=== PATIENT | male | born 1960 | race Caucasian/White ===

== ENCOUNTER → 2019-12-30 | Outpatient (CLI) | payer OTHER ==
[~2019-12-30] MED LIST: ACCUPRIL40 MG PO; ADVAIRDISKUS; ASA5UEC PO; ASTELIN30 ML NS; CELEXA 20 MG TA20 M1 PO; CLONIDINE PO; COUMADIN 5 MG TA5 M1 PO; DIAZEPAM 5 MG5 M1 PO; DOCUPRENE100 MG PO; FENOFIBRATE160 MG PO; FEXOFENADINE H180 MG PO; GLUCOPHAGE500 MG PO; JANUVIA100 MG; LITHIUM CARBON450 MG PO; LOVAZA1000 MG PO; NEXIUM40 MG PO; PROVENTIL17 G1 IH; SIMVASTATIN40 MG; SINGULAIR PO; SYNTHROID100 MCG PO
== END ==
LOC: MRI 12-25 11:35
DX: I67.82 Cerebral ischemia (principal); G62.9 Polyneuropathy, unspecified; G56.21 Lesion of ulnar nerve, right upper limb; G45.9 Transient cerebral ischemic attack, unspecified; M62.81 Muscle weakness (generalized)

== ENCOUNTER 2020-05-24 23:37 | Emergency (ER) | payer OTHER ==
[~2020-05-24] VITALS: Ht 175.3 cm; Wt 99.8 kg
[2020-05-25 01:21] LABS: BASOPHILS 0.5 % (0.0-2.0); EOSINOPHILS 3.4 % (0.0-3.0); HEMOGLOBIN 14.7 gm/dL (14.0-18.0)
[2020-05-25 01:23] LABS: ABSOLUTE NEUTROPHILS 5.3 thou/uL (1.4-8.2); MCH 39.4 pg (26.0-34.0); MCHC 43.1 g/dL (28.0-37.0); MCV 91.4 fL (80.0-100.0); MONOCYTES 5.9 % (1.0-8.0); PLATELET COUNT 155 thou/uL (150-400); POLYS 65.2 % (36.0-66.0); RBC 3.72 mil/uL (4.50-6.00); RDW 13.5 % (10.5-14.5); WBC 8.1 thou/uL (4.0-11.0)
[2020-05-25 01:24] LABS: ANION GAP 9 mmol/L (7-16); BUN 13 mg/dL (7-18); CALCIUM 8.9 mg/dL (8.5-10.1); CHLORIDE 104 mmol/L (98-107); CO2 24 mmol/L (21-32); CREATININE 1.2 mg/dL (0.7-1.3); GLUCOSE 108 mg/dL (74-106); POTASSIUM 4.1 mmol/L (3.5-5.1); SODIUM 137 mmol/L (136-145)
[2020-05-25] MEDS ORDERED: NIZATIDINE150 MG PO (01:26)
[2020-05-25] MEDS ORDERED: DESLORATADINE5 MG PO (01:27)
[2020-05-25] MEDS ORDERED: FOLIC ACID1 MG PO (01:29)
[2020-05-25] MEDS ORDERED: SYNTHROID112 MC1 PO (01:29)
[2020-05-25] MEDS ORDERED: VITAMIN B-121000 MC2 SUBLING (01:29)
[2020-05-25] MEDS ORDERED: REGLAN 10 MG TA10 MG PO (01:30)
[2020-05-25] MEDS ORDERED: GLIMEPIRIDE4 MG PO (01:30)
[2020-05-25] MEDS ORDERED: CARAFATE1 GM PO (01:31)
[2020-05-25] MEDS ORDERED: VITAMIN D250 MCG PO (01:32)
[2020-05-25 01:34] LABS: ALBUMIN 3.8 g/dL (3.4-5.0); DIRECT BILIRUBIN < 0.1 mg/dL (<0.1-0.2); SGOT 25 U/L (15-37); SGPT 35 U/L (30-65); TOTAL BILIRUBIN 0.5 mg/dL (0.2-1.0); TOTAL PROTEIN 7.5 g/dL (6.4-8.2); TROPONIN-I <0.06 ng/mL (<0.06)
[2020-05-25] MEDS ORDERED: CELEXA 20 MG TA20 MG PO (01:35)
[2020-05-25] MEDS ORDERED: FLOMAX0.4 MG PO (01:35)
[2020-05-25] MEDS ORDERED: TRAZODONE HCL100 MG PO (01:36)
[2020-05-25 01:40] LABS: APTT 56.7 Seconds (24.5-32.8); D-DIMER 0.19 ug/mLFEU (0.19-0.50)
[2020-05-25 01:42] LABS: INR 4.9
[2020-05-25 02:41] VITALS: BP 156/86
--- NOTE | 2020-05-25 07:53 | EKG ---
[facility] [place] [address] ELECTROCARDIOGRAM REPORT Name: SURINDER LUGO Room #: DEP M.R.#: [id number] Admission: 05/24/20 Attend Phys: Discharge: 05/25/20 Date of : 56 Report #: [id number] THIS REPORT FOR: cc: Corey Edwards MD, Thomas P. MD Lundgren, Craig H. 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: GEN WAITE : 1960 Requested By: Arlene Huang Order Number: [id number] MD: Lobito Broderick Measurements Intervals Ipava Rate: 84 P: 33 PA: 159 QRS: -15 QRSD: 86 T: 39 QT: 370 QTc: 438 Interpretive Statements Sinus rhythm Borderline left axis deviation Abnormal R-wave progression, early transition Compared to ECG 05/25/2010 17:21:43 No significant changes Electronically Signed On 05-25-2020 7:52:49 CDT by Lobito Broderick [email or web address] <ELECTRONICALLY SIGNED> By: Lobito Broderick MD, [facility] 05/25/20 [id number] Lobito Broderick MD, [facility] /EPI
== END 2020-05-25 02:54 | disposition home or self-care (01) ==
LOC: ER 23:37
PROVIDERS: Emergency Medicine
DX: R07.89 Other chest pain (principal); R06.00 Dyspnea, unspecified; R79.1 Abnormal coagulation profile; I10 Essential (primary) hypertension; E11.9 Type 2 diabetes mellitus without complications; K21.9 Gastro-esophageal reflux disease without esophagitis; Z90.89 Acquired absence of other organs; Z79.01 Long term (current) use of anticoagulants; Z79.899 Other long term (current) drug therapy; Z88.8 Allergy status to other drugs, medicaments and biological substances

== ENCOUNTER → 2020-07-12 | Outpatient (CLI) | payer OTHER ==
[~2020-07-12] MED LIST changes: +CARAFATE1 GM PO; +CELEXA 20 MG TA20 MG PO; +DESLORATADINE5 MG PO; +FLOMAX0.4 MG PO; +FOLIC ACID1 MG PO; +GLIMEPIRIDE4 MG PO; +NIZATIDINE150 MG PO; +REGLAN 10 MG TA10 MG PO; +SYNTHROID112 MC1 PO; +TRAZODONE HCL100 MG PO; +VITAMIN B-121000 MC2 SUBLING; +VITAMIN D250 MCG PO
== END ==
LOC: EH 07:40 → SJCVCIMAG 08:16
PROVIDERS: ATTEND Internal Medicine Cardiovascular Disease
DX: I49.3 Ventricular premature depolarization (principal); E78.5 Hyperlipidemia, unspecified; K21.9 Gastro-esophageal reflux disease without esophagitis; Z79.899 Other long term (current) drug therapy

== ENCOUNTER → 2020-07-29 | Outpatient (CLI) | payer OTHER | LOC: CAT 08:07 | PROVIDERS: ATTEND Internal Medicine Cardiovascular Disease | DX: Z13.6 Encounter for screening for cardiovascular disorders (principal); I25.10 Atherosclerotic heart disease of native coronary artery without angina pectoris; E78.00 Pure hypercholesterolemia, unspecified ==

== ENCOUNTER 2020-10-02 13:49 | Inpatient (IN) | payer OTHER ==
[2020-10-02] VITALS (34 sets, daily range): BP systolic 88–215; BP diastolic 42–108
[~2020-10-02] VITALS: Ht 175.3 cm; Wt 102.1 kg
--- NOTE | ~2020-10-02 | EMS ---
[address] [address] EMS Patient Care Report Name: SURINDER LUGO Room #: 170-8 ADM IN M.R.#: [id number] Admission: 10/02/20 Attend Phys: Will Littlejohn MD Discharge: Date of : 56 Report #: [id number] THIS REPORT FOR: //name// Report Transmitted: 10/02/2020 14:52 EMS Care Summary [place], [place]/[facility] Incident [id number] @ 10/02/2020 13:09 Incident Location [address] [place] [address] Patient SURINDER LUGO Male, 59 Years 1960 Patient Address [address] [place] [address] Patient History Asthma,Hypertension (HTN),Hyperlipidemia,Bipolar II Disorder,Type 2 Diabetes,Enlarged prostate, Patient Allergies Intravenous Dye,Dye allergy,Niacin,Compazine, Patient Medications Januvia, Warfarin, Synthroid, Duloxetine, Glimepiride, Trazodone, Diazepam, Simvastatin, Tamsulosin, Clonidine, [place], Citalopram, Chief Complaint Fever with weakness Disposition Transported No Lights/[place] Dispatch Reason Hemorrhage/Laceration Transported To [facility] Narrative Pt. reports that he is weak, tired and doesn't feel well. reports he has BPH and has been battling a fever for 4 days. Now he has blood in his urine. [address] [address] EMS Patient Care Report Name: SURINDER LUGO Room #: 170-8 ADM IN M.R.#: [id number] Admission: 10/02/20 Attend Phys: Will Littlejohn MD Discharge: Date of : 56 Report #: [id number] Just before she called, he slid off the bed and although uninjured he is too weak to stand or assist with his care anymore. Pt. 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 with report given Initial Vitals @13:26P: 133,CO: 5,SpO2: 95, @13:24P: 133,BP: 207/101,SpO2: 96, @13:23P: 134,CO: 3,SpO2: 95, @13:37P: 126,R: 18,BP: 180/100,Pain: 0/10,GCS: 15,CO: 5,SpO2: 97,Revised Trauma: 12, @13:22P: 133,CO: 4,SpO2: 97, Assessments @13:17MENTAL:Person Oriented,Time Oriented,Place Oriented,Event Oriented,SKIN:Hot,HEENT:LUNG SOUNDS:ABDOMEN:PELVIS//GI:EXTREMITIES:PULSE:Radial: 2+ Normal,NEURO: Impression Generalized Weakness Procedures @14:15ALS Assessment Timeline 13:06,Call Received 13:06,Dispatch Notified 13:09,Dispatched 13:09,En Route 13:12,On Scene 13:14,At Patient 13:22,BP: / M,PULSE: 133,RR: R,SPO2: 97 Ox,ETCO2: ,BG: ,PAIN: ,GCS: , 13:23,Depart Scene 13:23,BP: / M,PULSE: 134,RR: R,SPO2: 95 Ox,ETCO2: ,BG: ,PAIN: ,GCS: , 13:24,BP: 207/101 M,PULSE: 133,RR: R,SPO2: 96 Ox,ETCO2: ,BG: ,PAIN: ,GCS: , 13:26,BP: / M,PULSE: 133,RR: R,SPO2: 95 Ox,ETCO2: ,BG: ,PAIN: ,GCS: , 13:37,BP: 180/100 M,PULSE: 126,RR: 18 R,SPO2: 97 Ox,ETCO2: ,BG: ,PAIN: 0,GCS: 15, 13:45,At Destination [address] [place] [address] EMS Patient Care Report Name: SURINDER LUGO Room #: 170-8 ADM IN M.R.#: [id number] Admission: 10/02/20 Attend Phys: Will Littlejohn MD Discharge: Date of : 56 Report #: [id number] 14:15,ALS Assessment, 14:17,Call Closed Disclaimer [email or web address] Copyright 2020 [facility] This EMS Care Summary contains data elements from the applicable legal record (which may be displayed differently). It is designed to provide pertinent information for the following purposes: continuity of care, clinical quality, and state data reporting. The complete legal record is available to ED staff and administrators of the receiving hospital in ES's Patient Tracker. All data is provided "as is."
[~2020-10-02 13:49] MED LIST changes: -SIMVASTATIN40 MG; +SIMVASTATIN40 MG PO
[2020-10-02 14:19] LABS: ABSOLUTE NEUTROPHILS 7.9 thou/uL (1.4-8.2); BASOPHILS 0.2 % (0.0-2.0); EOSINOPHILS 0.2 % (0.0-3.0); HEMATOCRIT 41.7 % (42.0-52.0); HEMOGLOBIN 14.1 gm/dL (14.0-18.0); LYMPHOCYTES 7.6 % (24.0-44.0); MCH 30.4 pg (26.0-34.0); MCHC 33.8 g/dL (28.0-37.0); MCV 89.8 fL (80.0-100.0); PLATELET COUNT 159 thou/uL (150-400); RBC 4.64 mil/uL (4.50-6.00); RDW 13.7 % (10.5-14.5); WBC 9.2 thou/uL (4.0-11.0)
[2020-10-02 14:19] LABS: URINE BILIRUBIN NEGATIVE (Negative); URINE BLOOD 3+ (Negative); URINE GLUCOSE-RANDOM* 2+ (Negative); URINE KETONES 1+ (Negative); URINE NITRITE-REFLEX NEGATIVE (Negative); URINE PROTEIN (DIPSTICK) 2+ (Negative); URINE UROBILINOGEN 0.2 E.U./dl (0.2-1.0)
[2020-10-02 14:21] LABS: URINE CLARITY CLOUDY; URINE COLOR LT RED; URINE LEUKOCYTES-REFLEX 1+ (Negative)
[2020-10-02 14:34] LABS: APTT 36.2 Seconds (24.5-32.8); INR 1.6
[2020-10-02 14:35] LABS: CALCIUM 9.8 mg/dL (8.5-10.1); CREATININE 1.6 mg/dL (0.7-1.3); POTASSIUM 3.8 mmol/L (3.5-5.1)
[2020-10-02 14:40] LABS: CASTS None Seen /LPF (None Seen); MUCUS 4-6 Moderate strn/LPF (None Seen); SQUAMOUS 0-3 Few /LPF (0-3); URINE WBC-REFLEX 6-15 Few /HPF (0-5)
[2020-10-02 14:41] LABS: BACTERIA-REFLEX 1-9 Few /HPF (None Seen); CRYSTALS None Seen /LPF (None Seen); URINE RBC >20 Many /HPF (0-2); WBC CLUMPS Few (None Seen)
[2020-10-02] MEDS ORDERED: GLIMEPIRIDE1 MG PO (18:07)
[2020-10-02] MEDS ORDERED: MELATONIN3 M1 PO (18:14)
--- NOTE | 2020-10-02 19:36 | NUR ---
ASSUMED CARE AT 1705. PATIENT ADMITTED FROM THE ER. PATIENT AOx4. VITAL SIGNS STABLE. ON ROOM AIR AND TOLERATING IT WELL. ADMISSION ASSESSMENT AND HISTORY COMPLETED. SEPSIS SCREENING COMPLETED AND NEGATIVE. PATIENT FOLLOWS COMMANDS AND IS CALM AND COOPERATIVE. SINUS TACHYCARDIA ON THE MONITOR. BRIGHT RED URINE IN SOSA WITH 700 ML EMPTIED UPON ARRIVAL. SKIN INTACT. BELONGINGS ACCOUNTED FOR AND PLACED IN PATIENT'S CLOSET IN THE ROOM. HANDOFF TO ONCOMING NURSE OCCURRED AT 1900. PLAN OF CARE INITIATED.
--- NOTE | 2020-10-02 21:27 | NUR ---
This RN spoke to Lana () and Quinten(son) regarding patient condition and care at 2114.
--- NOTE | 2020-10-02 22:22 | NUR ---
This RN set up a family facetime for patients , son and patient. Family very appreciative and asks questions appropriately. This RN called David Altman NP regarding patients fluctuating heart rate, new leads applied and patient shaved, sinus rhythm and HR is within normal limits. EKG canceled. This RN received critical lactic acid value at 2039 and called David Altman NP. No new orders given. Continue to monitor.
--- NOTE | 2020-10-02 23:43 | NUR ---
This RN spoke to Lana, again regarding patient status at 2345 this evening.
[2020-10-03] VITALS (31 sets, daily range): BP systolic 98–187; BP diastolic 52–92
[2020-10-03 05:48] LABS: HEMATOCRIT 37.9 % (42.0-52.0); HEMOGLOBIN 12.7 gm/dL (14.0-18.0); MCH 30.1 pg (26.0-34.0); MCHC 33.7 g/dL (28.0-37.0); MCV 89.5 fL (80.0-100.0); RBC 4.23 mil/uL (4.50-6.00); WBC 7.5 thou/uL (4.0-11.0)
[2020-10-03 06:06] LABS: ALBUMIN 2.9 g/dL (3.4-5.0); CALCIUM 8.9 mg/dL (8.5-10.1); CREATININE 1.4 mg/dL (0.7-1.3); MAGNESIUM 1.7 mg/dL (1.8-2.4); POTASSIUM 3.9 mmol/L (3.5-5.1); TOTAL BILIRUBIN 1.3 mg/dL (0.2-1.0); TOTAL PROTEIN 6.6 g/dL (6.4-8.2)
[2020-10-03 06:16] LABS: INR 1.3; PROTIME 13.4 Seconds (9.3-11.4)
--- NOTE | 2020-10-03 13:43 | NUR ---
Case opened to follow for dc planning support. Pt is currently in the ICU in enhanced ISO d/t covid +, sepsis,UTI, and PUI. Chief Nurse spoke with the pt via his cell number [phone]. His is on room air and reports feeling better than when he got here. He is a&ox4 today and able to participate in the cm assessment. He was admitted from home with fever, n/v and hematuria. He had been ill for several days with fever, nausea and weakness. He reports no known covid contacts. He has a lane which had been placed on 09/19/20 by his urologist for retention. He was able to work with PT/OT today and notes that he was indep with gait and adl's prior to admission. He is retired and lives with his . He reports that she is getting tested tomorrow along with their son Quinten. He has no dme or hh history. He is open to HH/rehab referrals if needed but is hoping his strength will rebound and he can dc directly home. He is planning to go stay at his mother's home if he needs to quarentine away from his and son. His mother last year. The home has a stair glide to second level bedrooms and 2 steps to enter. Support provided. He has been able to talk with his family via his cell phone. Cm role introduced. Will follow.
--- NOTE | 2020-10-03 15:35 | NUR ---
PT UP TO CHAIR FOR THE MAJORITY OF THE DAY. WORKED WITH PHYSICAL AND OCCUPATIONAL THERAPY TODAY. PT HAD THREE BOUTS OF EMESIS THIS AM SO MEALS WERE HELD FOR THE REST OF THE DAY, PROVIDER IS AWARE AND AGREES. PT HAD LOW GRADE FEVER THIS AM; NOW NORMOTHERMIC. PT HAD BM THIS AM, ADEQUATE UOP WITH SOSA IN PLACE. MATICULUS ZAKIA/SOSA CARE DONE. CARDENE GTT TURNED OFF. LABS/IMAGES/MEDICATIONS REVIEWED. PT HAS BEEN UPDATED AND EDUCATED ON CONDITION AND POC. PT PROGRESSING TOWARDS POC.
[2020-10-04] VITALS (27 sets, daily range): BP systolic 99–141; BP diastolic 56–84
--- NOTE | 2020-10-04 02:48 | NUR ---
PT BEEN SLEEPING MOST OF THE NIGHT.VSS.A/OX4.NO ACUTE DISTRESS NOTED.ON RA WITH ADEQUATE OXYGEN SATURATION >94%.NO RESP DISTRESS OR SHORTNESS OF BREATH NOTED OR REPORTED.SHEILA DD,LARGE AMOUNT OF YELLOW URINE.ISOLATION MAINTAINED D/T POSITIVE COVID.ASSESSMENT DOCUMENTED.WILL CONT WITH POC.
[2020-10-04 09:12] LABS: HEMATOCRIT 34.3 % (42.0-52.0); HEMOGLOBIN 11.5 gm/dL (14.0-18.0); MCHC 33.4 g/dL (28.0-37.0); MCV 89.9 fL (80.0-100.0); RBC 3.81 mil/uL (4.50-6.00); RDW 13.9 % (10.5-14.5); WBC 5.2 thou/uL (4.0-11.0)
[2020-10-04 09:22] LABS: CALCIUM 9.2 mg/dL (8.5-10.1); MAGNESIUM 2.1 mg/dL (1.8-2.4); POTASSIUM 4.9 mmol/L (3.5-5.1)
--- NOTE | 2020-10-04 12:16 | NUR ---
ASSUMED CARE AT 0700. CONTACTED PATIENT'S , ANASTASIA, AND SHE WAS UPDATED AND EDUCATED ON THE PATIENT'S CONDITION AND PLAN OF CARE FROM 2405-5418.
[2020-10-05] VITALS (9 sets, daily range): BP systolic 100–153; BP diastolic 45–87
[2020-10-05 05:50] LABS: PROTIME 22.7 Seconds (9.3-11.4)
[2020-10-05 05:52] LABS: INR 2.2
--- NOTE | 2020-10-05 06:11 | NUR ---
RECIEVED VIA WHEELCHAIR FROM ICU , PT ALERT ORIENTED X4 ON ROOM AIR DENIES SOA , VSS UPON ARRIVAL TO UNIT. BREAD ICER PLACED SHOWS NSR, DISCUSSED PLAN OF CARE PT AGREEABLE AND VERBALIZED UNDERSTANDING.
--- NOTE | 2020-10-05 10:36 | NUR ---
DISCHARGE NOTE: CHETAN reviewed chart and spoke with nursing and attending physician. Pt transferred to 3W from ICU and remains in Enhanced Isolation due to COVID-19. Pt is medically stable for discharge home today. Per nursing, pt will need transportation home, as pt's has tested negative for COVID. CHETAN placed call to pt's room. No answer. CHETAN left voice message on pt's cell phone to obtain address where pt will be staying. Per chart, pt may be staying at his Mother's home during quarantine period. CHETAN updated nursing. SW is following to coordinate cab ride home. No additional SW needs identified at this time.
[2020-10-05] MEDS ORDERED: LISINOPRIL10 MG PO (12:14)
[2020-10-05] MEDS ORDERED: KEFLEX500 M1 PO (12:14)
[2020-10-05] MEDS ORDERED: LIPITOR 20 MG T20 M1 PO (12:14)
[2020-10-05] MEDS ORDERED: METOPROLOL SUCC50 MG PO (12:14)
[2020-10-05] MEDS ORDERED: ACEROLA C500 MG PO (12:14)
[2020-10-05] MEDS ORDERED: MEDROLDOSEPACK PO (12:14)
[2020-10-05] MEDS ORDERED: VITAMIN D3125 MC1 PO (12:14)
[2020-10-05] MEDS ORDERED: ZINC SULFATE 2220 MG PO (12:14)
[2020-10-05] MEDS ORDERED: CELEXA 20 MG TA20 MG PO (12:14)
[2020-10-05] MEDS ORDERED: GLUCOPHAGE500 MG PO (12:14)
[2020-10-05] MEDS ORDERED: CATAPRES0.1 MG PO (12:14)
[2020-10-05] MEDS ORDERED: SINGULAIR 10 MG10 M1 PO (12:14)
== END 2020-10-05 14:02 | disposition home or self-care (01) | DRG 871 ==
LOC: ER 13:49 → EROBS 15:02 → ICU 15:02 → 3W 10-05 04:50
PROVIDERS: Emergency Medicine; ADMIT Internal Medicine; ATTEND Internal Medicine
DX: A41.89 Other specified sepsis (principal); U07.1 COVID-19; G92 Toxic encephalopathy; N39.0 Urinary tract infection, site not specified; N17.9 Acute kidney failure, unspecified; I16.1 Hypertensive emergency; I16.0 Hypertensive urgency; E78.5 Hyperlipidemia, unspecified; I12.9 Hypertensive chronic kidney disease with stage 1 through stage 4 chronic kidney disease, or unspecified chronic kidney disease; E11.22 Type 2 diabetes mellitus with diabetic chronic kidney disease; N18.9 Chronic kidney disease, unspecified; B96.1 Klebsiella pneumoniae [K. pneumoniae] as the cause of diseases classified elsewhere; N40.1 Benign prostatic hyperplasia with lower urinary tract symptoms; R33.8 Other retention of urine; K21.9 Gastro-esophageal reflux disease without esophagitis; F31.9 Bipolar disorder, unspecified; Z79.01 Long term (current) use of anticoagulants; Z79.84 Long term (current) use of oral hypoglycemic drugs; Z79.899 Other long term (current) drug therapy; Z88.8 Allergy status to other drugs, medicaments and biological substances
CPT/HCPCS: 10078; 10203

== ENCOUNTER → 2021-10-05 | Outpatient (CLI) | payer OTHER ==
[~2021-10-05] MED LIST changes: +ACEROLA C500 MG PO; +CATAPRES0.1 MG PO; +GLIMEPIRIDE1 MG PO; +KEFLEX500 M1 PO; +LIPITOR 20 MG T20 M1 PO; +LISINOPRIL10 MG PO; +MEDROLDOSEPACK PO; +MELATONIN3 M1 PO; +METOPROLOL SUCC50 MG PO; +SINGULAIR 10 MG10 M1 PO; +VITAMIN D3125 MC1 PO; +ZINC SULFATE 2220 MG PO
[2021-10-05 13:44] LABS: ABSOLUTE NEUTROPHILS 6.6 thou/uL (1.4-8.2); BASOPHILS 0.6 % (0.0-2.0); EOSINOPHILS 3.2 % (0.0-3.0); HEMATOCRIT 44.5 % (42.0-52.0); HEMOGLOBIN 15.1 gm/dL (14.0-18.0); LYMPHOCYTES 24.1 % (24.0-44.0); MCH 30.4 pg (26.0-34.0); MCV 89.4 fL (80.0-100.0); PLATELET COUNT 219 thou/uL (150-400); POLYS 67.1 % (36.0-66.0); RBC 4.98 mil/uL (4.50-6.00); RDW 13.8 % (10.5-14.5); WBC 9.8 thou/uL (4.0-11.0)
[2021-10-05 13:59] LABS: ALBUMIN 3.6 g/dL (3.4-5.0); CALCIUM 9.2 mg/dL (8.5-10.1); CREATININE 1.3 mg/dL (0.7-1.3); POTASSIUM 4.3 mmol/L (3.5-5.1); TOTAL BILIRUBIN 0.6 mg/dL (0.2-1.0); TOTAL PROTEIN 7.3 g/dL (6.4-8.2)
== END ==
LOC: MRI 10-04 12:57
PROVIDERS: ATTEND Psychiatry & Neurology Neuromuscular Medicine
DX: I67.82 Cerebral ischemia (principal); R25.1 Tremor, unspecified; R42 Dizziness and giddiness; R53.1 Weakness